=== PATIENT | male | born 1980 | race African-American/Black ===

== ENCOUNTER 2017-12-14 10:03 | Emergency (ER) | payer OTHER ==
[~2017-12-14] VITALS: Ht 170.2 cm; Wt 79.4 kg
[~2017-12-14 10:03] MED LIST: FLUOXETINE; STRIBILD TABLE1 EACH PO; XANAX 0.25 MG0.25 MG PO; ZOFRAN ODT4 MG PO
[2017-12-14 11:36] LABS: URINE BILIRUBIN NEGATIVE (Negative); URINE BLOOD NEGATIVE (Negative); URINE CLARITY CLEAR; URINE COLOR YELLOW; URINE GLUCOSE-RANDOM* NEGATIVE (Negative); URINE KETONES NEGATIVE (Negative); URINE LEUKOCYTES-REFLEX NEGATIVE (Negative); URINE NITRITE-REFLEX NEGATIVE (Negative); URINE PROTEIN (DIPSTICK) NEGATIVE (Negative); URINE SPECIFIC GRAVITY 1.025 (1.005-1.035); URINE UROBILINOGEN 0.2 E.U./dl (0.2-1.0)
[2018-03-06] MEDS ORDERED: HYDROXYZINE HCL25 M1 PO (15:32)
== END 2017-12-14 12:19 | disposition home or self-care (01) ==
LOC: ER 10:03
PROVIDERS: Emergency Medicine
DX: A64 Unspecified sexually transmitted disease (principal); J45.909 Unspecified asthma, uncomplicated; F41.9 Anxiety disorder, unspecified